=== PATIENT | female | born 1935 | race Caucasian/White ===

== ENCOUNTER 2021-07-28 13:18 | Inpatient (IN) ==
[2021-07-28 16:34] LABS: ABS Lymphocytes 0.5 10^3/ul (1.0-4.8); ABS Monocytes 0.6 10^3/ul (0-0.8); ABS Neutrophils 10.6 10^3/ul (1.5-7.7); Eosinophil % 0.1 %; Hematocrit 44 % (35-47); Hemoglobin 14.6 g/dL (12.0-16.0); Lymphocyte % 4.2 %; Mean Corpuscular HGB Conc 33 g/dL (31-36); Mean Corpuscular Hemoglobin 31 pg (27-31); Mean Corpuscular Volume 94 fL (80-97); Mean Platelet Volume 9.3 fL (7.4-10.4); Platelet Count 165 10^3/uL (150-450); Red Blood Count 4.68 10^6 /uL (3.70-4.87); Red Cell Distribution Width 15 % (10-15); White Blood Count 11.7 10^3/uL (3.5-10.8)
[2021-07-28 17:38] LABS: Albumin 4.3 g/dL (3.2-5.2); C Reactive Protein 1.94 mg/L (<8.01); Calcium 9.6 mg/dL (8.6-10.3); Globulin 2.1 g/dL (2-4); Potassium 4.2 mmol/L (3.5-5.0); Total Bilirubin 0.7 mg/dL (0.2-1.0); Total Protein 6.4 g/dL (6.4-8.9)
[2021-07-28] MEDS ORDERED: Iohexol 300 (CONTRAST) 10 ML SDV IV ONE (20:18)
[2021-07-28] MEDS ORDERED: Famotidine IV 10 MG/ML 2 ml VIAL (20 mg) IV SLOW PU ONE (21:41)
[2021-07-28] MEDS ORDERED: Lactated Ringers 1000 ml BAG 500 ML IV ONE (21:41)
[2021-07-28] MEDS ORDERED: Ondansetron 4 mg VIAL 2 MG/ML 2 ml VIAL IV ONE (21:41)
[2021-07-28 21:44] LABS: Troponin I 0.01 ng/mL (<0.03)
[2021-07-28] MEDS: fentaNYL 100 mcg/2 ml 50 MCG/ML VIAL IV SLOW PU ONE (22:09)
[2021-07-28] MEDS: Morphine 4 MG/ML VIAL (1 ml) IV ONE (22:26)
[2021-07-28] MEDS ORDERED: NS 0.9% 1000 ml BAG 1,000 ML IV SCH (23:45)
[2021-07-29] MEDS: fentaNYL 100 mcg/2 ml 50 MCG/ML VIAL IV SLOW PU ONE (02:07)
[2021-07-29] MEDS ORDERED: Dextrose 50% Syringe 50 ml 25 GM/50 ML SYRINGE IV PUSH PRN (02:09)
[2021-07-29] MEDS ORDERED: Furosemide 20 mg/2 ml IV VIAL IV ONE (02:23)
[2021-07-29] MEDS ORDERED: Morphine 4 MG/ML VIAL (1 ml) ONE (02:43)
[2021-07-29] MEDS: Morphine 4 MG/ML VIAL (1 ml) IV ONE (02:44)
[2021-07-29 04:53] LABS: Rapid COVID-19 Molecular Undetected (Undetected)
[2021-07-29] MEDS ORDERED: NS 0.9% 1000 ml BAG 1,000 ML IV SCH (05:05)
[2021-07-29 06:19] LABS: ABS Eosinophils 0.1 10^3/ul (0-0.6); ABS Monocytes 1.2 10^3/ul (0-0.8); ABS Neutrophils 8.4 10^3/ul (1.5-7.7); Eosinophil % 0.6 %; Hematocrit 45 % (35-47); Hemoglobin 15.2 g/dL (12.0-16.0); Lymphocyte % 9.2 %; Mean Corpuscular HGB Conc 34 g/dL (31-36); Mean Corpuscular Hemoglobin 32 pg (27-31); Mean Corpuscular Volume 93 fL (80-97); Mean Platelet Volume 9.8 fL (7.4-10.4); Platelet Count 181 10^3/uL (150-450); Red Blood Count 4.82 10^6 /uL (3.70-4.87); Red Cell Distribution Width 15 % (10-15); White Blood Count 10.7 10^3/uL (3.5-10.8)
[2021-07-29 06:36] LABS: Calcium 9.5 mg/dL (8.6-10.3); Potassium 3.9 mmol/L (3.5-5.0)
[2021-07-29] MEDS: Ondansetron 4 mg VIAL 2 MG/ML 2 ml VIAL IV PRN ×2 (06:56→16:36)
[2021-07-29] MEDS: methylPREDNISolone SOD 40 mg/ml 1 ml VIAL IV SCH (07:52)
[2021-07-29] MEDS: Pantoprazole VIAL 40 MG VIAL IV SCH (07:56)
[2021-07-29] MEDS: Timolol 0.5% OPTH.SOL BTL LEFT EYE SCH ×2 (08:11→20:55)
[2021-07-29] MEDS: Lactated Ringers 1000 ml BAG 1,000 ML IV SCH ×2 (08:14→23:43)
[2021-07-29] MEDS ORDERED: Furosemide 20 mg/2 ml IV VIAL IV SCH (09:00)
[2021-07-29] MEDS ORDERED: Insulin GLARGINE 100 un/ml 10 ml VIAL SUBCUT SCH (09:00)
[2021-07-29 09:14] LABS: Urine Appearance Clear; Urine Bilirubin Negative (Negative); Urine Blood Negative (Negative); Urine Color Yellow; Urine Glucose 1+(50 mg/dL) (Negative); Urine Ketones Negative (Negative); Urine Nitrite Negative (Negative); Urine Protein Negative (Negative); Urine Specific Gravity 1.046 (1.002-1.030); Urine Urobilinogen Negative (Negative)
[2021-07-29 09:20] LABS: Urine Bacteria Absent (Absent); Urine Red Blood Cell Trace(0-2/hpf) (Absent); Urine Squamous Epithelial Cell Present (Absent); Urine White Blood Cell 1+(6-10/hpf) (Absent)
[2021-07-29] MEDS: Enoxaparin 40 MG/0.4 ML SYR SUBCUT SCH (12:44)
[2021-07-29] MEDS: Acetaminophen IV 1 GM/100ML 100 ML IV PRN (16:37)
[2021-07-30] MEDS: Acetaminophen IV 1 GM/100ML 100 ML IV PRN ×3 (00:56→19:41)
[2021-07-30] MEDS: Benzocaine/Menthol LOZ PO PRN ×3 (01:06→19:42)
[2021-07-30 07:25] LABS: Calcium 9.8 mg/dL (8.6-10.3); Magnesium 2.1 mg/dL (1.9-2.7); Potassium 3.7 mmol/L (3.5-5.0)
[2021-07-30 07:37] LABS: Hematocrit 46 % (35-47); Hemoglobin 15.6 g/dL (12.0-16.0); Mean Corpuscular HGB Conc 34 g/dL (31-36); Mean Corpuscular Hemoglobin 32 pg (27-31); Mean Corpuscular Volume 94 fL (80-97); Mean Platelet Volume 10.3 fL (7.4-10.4); Platelet Count 154 10^3/uL (150-450); Red Blood Count 4.87 10^6 /uL (3.70-4.87); Red Cell Distribution Width 16 % (10-15)
[2021-07-30] MEDS: KCL 10 MEQ/50 ML IVPREMIX 10 MEQ/50 ML BAG IV SCH ×2 (08:01→10:53)
[2021-07-30] MEDS: methylPREDNISolone SOD 40 mg/ml 1 ml VIAL IV SCH (08:05)
[2021-07-30] MEDS: Pantoprazole VIAL 40 MG VIAL IV SCH (08:05)
[2021-07-30] MEDS: Timolol 0.5% OPTH.SOL BTL LEFT EYE SCH ×2 (08:06→19:42)
[2021-07-30] MEDS ORDERED: METHOTREXATE 2.5 MG PO SCH (09:00)
[2021-07-30] MEDS: Enoxaparin 40 MG/0.4 ML SYR SUBCUT SCH (10:55)
[2021-07-30] MEDS: Lactated Ringers 1000 ml BAG 1,000 ML IV SCH (14:10)
[2021-07-31] MEDS: Benzocaine/Menthol LOZ PO PRN ×2 (02:41→09:10)
[2021-07-31] MEDS: Lactated Ringers 1000 ml BAG 1,000 ML IV SCH (02:41)
[2021-07-31] MEDS: Acetaminophen IV 1 GM/100ML 100 ML IV PRN ×2 (04:37→19:40)
[2021-07-31 07:45] LABS: Hematocrit 40 % (35-47); Hemoglobin 13.8 g/dL (12.0-16.0); Mean Corpuscular HGB Conc 34 g/dL (31-36); Mean Corpuscular Hemoglobin 32 pg (27-31); Mean Corpuscular Volume 94 fL (80-97); Mean Platelet Volume 10.1 fL (7.4-10.4); Platelet Count 123 10^3/uL (150-450); Red Blood Count 4.31 10^6 /uL (3.70-4.87); Red Cell Distribution Width 15 % (10-15); White Blood Count 9.9 10^3/uL (3.5-10.8)
[2021-07-31 07:59] LABS: Calcium 8.9 mg/dL (8.6-10.3); Magnesium 1.9 mg/dL (1.9-2.7); Potassium 3.6 mmol/L (3.5-5.0)
[2021-07-31] MEDS ORDERED: Magnesium Sulfate IV 1GM/100ML 1 GM/100 ML BAG IV ONE (08:10)
[2021-07-31] MEDS: methylPREDNISolone SOD 40 mg/ml 1 ml VIAL IV SCH (09:01)
[2021-07-31] MEDS: Pantoprazole VIAL 40 MG VIAL IV SCH (09:01)
[2021-07-31] MEDS: Timolol 0.5% OPTH.SOL BTL LEFT EYE SCH ×2 (09:01→21:24)
[2021-07-31] MEDS: KCL 10 MEQ/50 ML IVPREMIX 10 MEQ/50 ML BAG IV SCH ×4 (09:49→14:08)
[2021-07-31] MEDS: Enoxaparin 40 MG/0.4 ML SYR SUBCUT SCH (10:43)
[2021-07-31] MEDS ORDERED: Insulin GLARGINE 100 un/ml 10 ml VIAL SUBCUT SCH (21:00)
[2021-07-31] MEDS: Morphine 2 MG/ML SYRINGE IV PRN (23:21)
[2021-08-01 06:20] LABS: Hematocrit 43 % (35-47); Hemoglobin 14.5 g/dL (12.0-16.0); Mean Corpuscular HGB Conc 34 g/dL (31-36); Mean Corpuscular Hemoglobin 32 pg (27-31); Mean Corpuscular Volume 94 fL (80-97); Mean Platelet Volume 9.7 fL (7.4-10.4); Platelet Count 147 10^3/uL (150-450); Red Blood Count 4.55 10^6 /uL (3.70-4.87); Red Cell Distribution Width 15 % (10-15); White Blood Count 8.7 10^3/uL (3.5-10.8)
[2021-08-01 06:42] LABS: Calcium 8.8 mg/dL (8.6-10.3); Potassium 4.1 mmol/L (3.5-5.0)
[2021-08-01] MEDS: methylPREDNISolone SOD 40 mg/ml 1 ml VIAL IV SCH (08:57)
[2021-08-01] MEDS: Pantoprazole VIAL 40 MG VIAL IV SCH (08:57)
[2021-08-01] MEDS: Timolol 0.5% OPTH.SOL BTL LEFT EYE SCH ×2 (08:57→22:39)
[2021-08-01] MEDS: Acetaminophen IV 1 GM/100ML 100 ML IV PRN (08:58)
[2021-08-01] MEDS: Enoxaparin 40 MG/0.4 ML SYR SUBCUT SCH (10:57)
[2021-08-01] MEDS: Lactated Ringers 1000 ml BAG 1,000 ML IV SCH (11:00)
[2021-08-01] MEDS: Insulin GLARGINE 100 un/ml 10 ml VIAL SUBCUT SCH (21:46)
[2021-08-01] MEDS: Morphine 2 MG/ML SYRINGE IV PRN (21:47)
[2021-08-01] MEDS: Ondansetron 4 mg VIAL 2 MG/ML 2 ml VIAL IV PRN (22:01)
[2021-08-02] MEDS: Lactated Ringers 1000 ml BAG 1,000 ML IV SCH (04:23)
[2021-08-02] MEDS: Acetaminophen IV 1 GM/100ML 100 ML IV PRN ×2 (06:02→20:39)
[2021-08-02 08:54] LABS: Hematocrit 40 % (35-47); Hemoglobin 13.6 g/dL (12.0-16.0); Mean Corpuscular HGB Conc 34 g/dL (31-36); Mean Corpuscular Hemoglobin 32 pg (27-31); Mean Corpuscular Volume 93 fL (80-97); Mean Platelet Volume 9.3 fL (7.4-10.4); Platelet Count 142 10^3/uL (150-450); Red Blood Count 4.32 10^6 /uL (3.70-4.87); Red Cell Distribution Width 15 % (10-15); White Blood Count 4.9 10^3/uL (3.5-10.8)
[2021-08-02 09:10] LABS: Calcium 8.5 mg/dL (8.6-10.3); Magnesium 1.9 mg/dL (1.9-2.7); Potassium 3.9 mmol/L (3.5-5.0)
[2021-08-02] MEDS: Pantoprazole VIAL 40 MG VIAL IV SCH (09:55)
[2021-08-02] MEDS: Timolol 0.5% OPTH.SOL BTL LEFT EYE SCH ×2 (10:02→23:27)
[2021-08-02] MEDS ORDERED: KCL 10 MEQ/50 ML IVPREMIX 10 MEQ/50 ML BAG IV ONE (10:04)
[2021-08-02] MEDS ORDERED: Magnesium Sulfate IV 1GM/100ML 1 GM/100 ML BAG IV ONE (10:04)
[2021-08-02] MEDS: methylPREDNISolone SOD 40 mg/ml 1 ml VIAL IV SCH (10:14)
[2021-08-02] MEDS: Enoxaparin 40 MG/0.4 ML SYR SUBCUT SCH (12:40)
[2021-08-02] MEDS ORDERED: fentaNYL 100 mcg/2 ml 50 MCG/ML VIAL ONE ×2 (15:47→18:07)
[2021-08-02] MEDS ORDERED: Rocuronium 50 mg VIAL 10 mg/ml 5 ml VIAL (50 mg) ONE (15:47)
[2021-08-02] MEDS ORDERED: ceFAZolin 2 GM in NS PREMIX 2 GM/100 ML BAG IVPB ONE (15:57)
[2021-08-02] MEDS ORDERED: Bupivacaine 0.25% SDV 30 ML ONE (16:00)
[2021-08-02] MEDS ORDERED: Phenylephrine 40 mcg/mL 10mL (400mcg) SYRINGE ONE (16:57)
[2021-08-02] MEDS ORDERED: HYDROmorphone 1 MG/1 ML SYRINGE IV PRN ×2 (16:58→18:03)
[2021-08-02] MEDS ORDERED: fentaNYL 100 mcg/2 ml 50 MCG/ML VIAL IV PRN (16:58)
[2021-08-02] MEDS ORDERED: Naloxone 0.4 mg VIAL 0.4 mg/ml 1 ml VIAL IV PRN ×2 (16:58→18:03)
[2021-08-02] MEDS ORDERED: Ondansetron 4 mg VIAL 2 MG/ML 2 ml VIAL IV PRN ×2 (16:58→18:03)
[2021-08-02] MEDS ORDERED: Sugammadex 500 MG/5 ML 5 ml VIAL IV PUSH ONE (17:14)
[2021-08-02] MEDS ORDERED: Ondansetron 4 mg VIAL 2 MG/ML 2 ml VIAL ONE (17:14)
[2021-08-02] MEDS: fentaNYL 100 mcg/2 ml 50 MCG/ML VIAL IV PRN ×4 (18:10→18:28)
[2021-08-03] MEDS: Insulin GLARGINE 100 un/ml 10 ml VIAL SUBCUT SCH (00:33)
[2021-08-03] MEDS: Morphine 2 MG/ML SYRINGE IV PRN ×2 (00:34→05:20)
[2021-08-03] MEDS: Lactated Ringers 1000 ml BAG 1,000 ML IV SCH ×2 (03:58→20:08)
[2021-08-03 06:19] LABS: Hematocrit 42 % (35-47); Hemoglobin 14.1 g/dL (12.0-16.0); Mean Corpuscular HGB Conc 34 g/dL (31-36); Mean Corpuscular Hemoglobin 32 pg (27-31); Mean Corpuscular Volume 95 fL (80-97); Mean Platelet Volume 10.1 fL (7.4-10.4); Platelet Count 118 10^3/uL (150-450); Red Blood Count 4.41 10^6 /uL (3.70-4.87); Red Cell Distribution Width 15 % (10-15); White Blood Count 9.2 10^3/uL (3.5-10.8)
[2021-08-03 06:35] LABS: Calcium 8.3 mg/dL (8.6-10.3)
[2021-08-03] MEDS: Timolol 0.5% OPTH.SOL BTL LEFT EYE SCH ×2 (08:51→20:05)
[2021-08-03] MEDS: methylPREDNISolone SOD 40 mg/ml 1 ml VIAL IV SCH (08:51)
[2021-08-03] MEDS: Pantoprazole VIAL 40 MG VIAL IV SCH (08:54)
[2021-08-03] MEDS ORDERED: Lactated Ringers 500 ml BAG 500 ML IV ONE (14:50)
[2021-08-03] MEDS: Enoxaparin 40 MG/0.4 ML SYR SUBCUT SCH (17:23)
[2021-08-04 06:25] LABS: Hematocrit 34 % (35-47); Hemoglobin 11.7 g/dL (12.0-16.0); Mean Corpuscular HGB Conc 34 g/dL (31-36); Mean Corpuscular Hemoglobin 32 pg (27-31); Mean Corpuscular Volume 95 fL (80-97); Platelet Count 111 10^3/uL (150-450); Red Blood Count 3.63 10^6 /uL (3.70-4.87); Red Cell Distribution Width 15 % (10-15); White Blood Count 6.1 10^3/uL (3.5-10.8)
[2021-08-04 06:44] LABS: Magnesium 1.9 mg/dL (1.9-2.7); Potassium 3.9 mmol/L (3.5-5.0)
[2021-08-04] MEDS: Timolol 0.5% OPTH.SOL BTL LEFT EYE SCH ×2 (09:20→20:29)
[2021-08-04] MEDS: Pantoprazole VIAL 40 MG VIAL IV SCH (09:20)
[2021-08-04] MEDS: methylPREDNISolone SOD 40 mg/ml 1 ml VIAL IV SCH (09:20)
[2021-08-04] MEDS: Lactated Ringers 1000 ml BAG 1,000 ML IV SCH ×2 (09:24→23:21)
[2021-08-04] MEDS ORDERED: Magnesium Sulfate IV 1GM/100ML 1 GM/100 ML BAG IV ONE (09:45)
[2021-08-04] MEDS ORDERED: HYDROcodone/ACETAMIN 5/325 mg TAB PO PRN (09:57)
[2021-08-04 11:39] LABS: Hematocrit 36 % (35-47); Hemoglobin 11.8 g/dL (12.0-16.0)
[2021-08-04] MEDS: Enoxaparin 40 MG/0.4 ML SYR SUBCUT SCH (17:14)
[2021-08-05] MEDS ORDERED: Al Hydrox/Mg Hydrox/Simet LIQ 30 ML UDC PO ONE (01:17)
[2021-08-05] MEDS: Ondansetron 4 mg VIAL 2 MG/ML 2 ml VIAL IV PRN ×2 (04:48→11:25)
[2021-08-05 06:29] LABS: ABS Lymphocytes 0.4 10^3/ul (1.0-4.8); ABS Monocytes 0.4 10^3/ul (0-0.8); ABS Neutrophils 5.5 10^3/ul (1.5-7.7); Eosinophil % 0.8 %; Hematocrit 36 % (35-47); Hemoglobin 12.3 g/dL (12.0-16.0); Lymphocyte % 6.9 %; Mean Corpuscular HGB Conc 35 g/dL (31-36); Mean Corpuscular Hemoglobin 32 pg (27-31); Mean Corpuscular Volume 93 fL (80-97); Mean Platelet Volume 9.4 fL (7.4-10.4); Platelet Count 132 10^3/uL (150-450); Red Blood Count 3.81 10^6 /uL (3.70-4.87); Red Cell Distribution Width 15 % (10-15); White Blood Count 6.4 10^3/uL (3.5-10.8)
[2021-08-05 06:55] LABS: Magnesium 1.9 mg/dL (1.9-2.7); Potassium 3.8 mmol/L (3.5-5.0)
[2021-08-05] MEDS: Timolol 0.5% OPTH.SOL BTL LEFT EYE SCH ×2 (11:24→22:53)
[2021-08-05] MEDS: Pantoprazole VIAL 40 MG VIAL IV SCH (11:24)
[2021-08-05] MEDS: methylPREDNISolone SOD 40 mg/ml 1 ml VIAL IV SCH (11:25)
[2021-08-05] MEDS: Lactated Ringers 1000 ml BAG 1,000 ML IV SCH (13:41)
[2021-08-05] MEDS: Enoxaparin 40 MG/0.4 ML SYR SUBCUT SCH (17:40)
[2021-08-06] MEDS: Lactated Ringers 1000 ml BAG 1,000 ML IV SCH ×2 (03:58→21:36)
[2021-08-06 06:11] LABS: Hematocrit 35 % (35-47); Hemoglobin 11.8 g/dL (12.0-16.0); Mean Corpuscular HGB Conc 34 g/dL (31-36); Mean Corpuscular Hemoglobin 32 pg (27-31); Mean Corpuscular Volume 94 fL (80-97); Mean Platelet Volume 9.2 fL (7.4-10.4); Platelet Count 125 10^3/uL (150-450); Red Blood Count 3.65 10^6 /uL (3.70-4.87); Red Cell Distribution Width 15 % (10-15); White Blood Count 5.7 10^3/uL (3.5-10.8)
[2021-08-06 06:21] LABS: Calcium 7.8 mg/dL (8.6-10.3); Magnesium 1.8 mg/dL (1.9-2.7); Potassium 3.9 mmol/L (3.5-5.0)
[2021-08-06] MEDS ORDERED: KCL 10 MEQ/50 ML IVPREMIX 10 MEQ/50 ML BAG IV ONE (07:12)
[2021-08-06] MEDS ORDERED: Magnesium Sulfate IV 1GM/100ML 1 GM/100 ML BAG IV ONE (07:12)
[2021-08-06] MEDS: methylPREDNISolone SOD 40 mg/ml 1 ml VIAL IV SCH (10:06)
[2021-08-06] MEDS: Timolol 0.5% OPTH.SOL BTL LEFT EYE SCH ×2 (10:07→21:32)
[2021-08-06] MEDS: Pantoprazole VIAL 40 MG VIAL IV SCH (10:07)
[2021-08-06] MEDS: Enoxaparin 40 MG/0.4 ML SYR SUBCUT SCH (18:18)
[2021-08-07 06:00] LABS: Hematocrit 37 % (35-47); Hemoglobin 12.4 g/dL (12.0-16.0); Mean Corpuscular HGB Conc 34 g/dL (31-36); Mean Corpuscular Hemoglobin 32 pg (27-31); Mean Corpuscular Volume 95 fL (80-97); Mean Platelet Volume 9.2 fL (7.4-10.4); Platelet Count 141 10^3/uL (150-450); Red Blood Count 3.89 10^6 /uL (3.70-4.87); Red Cell Distribution Width 15 % (10-15); White Blood Count 7.6 10^3/uL (3.5-10.8)
[2021-08-07 06:29] LABS: Magnesium 1.9 mg/dL (1.9-2.7); Potassium 3.5 mmol/L (3.5-5.0)
[2021-08-07] MEDS ORDERED: Potassium Chlor 20 meq TAB.ER PO ONE (07:32)
[2021-08-07] MEDS ORDERED: Magnesium Sulfate IV 1GM/100ML 1 GM/100 ML BAG IV ONE (07:33)
[2021-08-07] MEDS: Pantoprazole VIAL 40 MG VIAL IV SCH (08:07)
[2021-08-07] MEDS: methylPREDNISolone SOD 40 mg/ml 1 ml VIAL IV SCH (08:07)
[2021-08-07] MEDS: Timolol 0.5% OPTH.SOL BTL LEFT EYE SCH ×2 (08:08→20:52)
[2021-08-07] MEDS: Enoxaparin 40 MG/0.4 ML SYR SUBCUT SCH (17:19)
[2021-08-08 06:10] LABS: Hematocrit 37 % (35-47); Hemoglobin 12.4 g/dL (12.0-16.0); Mean Corpuscular HGB Conc 34 g/dL (31-36); Mean Corpuscular Hemoglobin 32 pg (27-31); Mean Corpuscular Volume 94 fL (80-97); Mean Platelet Volume 9.4 fL (7.4-10.4); Platelet Count 167 10^3/uL (150-450); Red Cell Distribution Width 15 % (10-15); White Blood Count 8.3 10^3/uL (3.5-10.8)
[2021-08-08 06:25] LABS: Calcium 7.9 mg/dL (8.6-10.3); Magnesium 1.9 mg/dL (1.9-2.7); Potassium 3.5 mmol/L (3.5-5.0)
[2021-08-08] MEDS: methylPREDNISolone SOD 40 mg/ml 1 ml VIAL IV SCH (09:26)
[2021-08-08] MEDS: Pantoprazole VIAL 40 MG VIAL IV SCH (09:26)
[2021-08-08] MEDS: Timolol 0.5% OPTH.SOL BTL LEFT EYE SCH (09:31)
[2021-08-08 12:15] VITALS: BP 152/63
== END 2021-08-08 16:50 | disposition home or self-care (01) | DRG 336 ==
LOC: ED 13:18 → SUATTDRO 23:45 → SSU 23:45
PROVIDERS: ADMIT Internal Medicine; ATTEND Internal Medicine